=== PATIENT | female | born 1955 | race Caucasian/White ===

== ENCOUNTER 2020-02-29 11:59 | Emergency (ER) | payer MEDICARE, OTHER, MEDICAID, SELFPAY ==
[2020-02-29 12:22] VITALS: BP 90/65; PULSE 100; RESP 16; TEMP 36.8; O2SAT 100
--- NOTE | 2020-02-29 12:59 | ED.URI ---
HPI - URI/Sore Throat General Chief Complaint: Upper Respiratory Infection Stated Complaint: sore throat Time Seen by Provider: 02/29/20 12:47 Source: patient and RN notes reviewed Mode of arrival: ambulatory Limitations: no limitations History of Present Illness HPI Narrative: Patient presents today complaint of a 2-day history of sore throat with an occasionally productive cough since yesterday with white sputum. Denies fever. Patient has a significant respiratory history and wears oxygen continuously at 2 L. She does report chronic shortness of breath, but this is no worse than normal. She is currently on 5 mg of prednisone daily for her chronic illnesses. She has been using Sucrets for her throat pain. MD elicited complaint: sore throat Related Data Home Medications Medication Instructions Recorded Confirmed alprazolam 02/29/20 bacillus coagulans-inulin cap PO 02/29/20 [Probiotic Formula (inulin)] budesonide-formoterol [Symbicort] INHALATION 02/29/20 carboxymethylcellulose sodium 02/29/20 [Refresh Tears] cetirizine mg 02/29/20 cyproheptadine 02/29/20 docusate sodium PO 02/29/20 ergocalciferol (vitamin D2) 02/29/20 [Vitamin D2] famotidine 02/29/20 lidocaine 02/29/20 metoprolol succinate 02/29/20 prednisone 02/29/20 sodium chloride [Saline Mist] INTRANASAL 02/29/20 tiotropium bromide [Spiriva with INHALATION 02/29/20 HandiHaler] trazodone 02/29/20 zoledronic [id number] 02/29/20 Allergies Allergy/AdvReac Type Severity Reaction Status Date / Time No Known Allergies Allergy Unverified 03/23/16 18:34 Review of Systems Review of Systems: Narrative: CONSTITUTIONAL: Denies body aches, fever, chills, or sweats. EYES: Denies visual changes, redness, or discharge. ENT: Denies rhinorrhea, congestion, or otalgia.+ Sore throat CARDIOVASCULAR: Denies chest pain, palpitations, or edema. RESPIRATORY: Denies dyspnea.+ Cough GASTROINTESTINAL: Denies abdominal pain, nausea, vomiting, or diarrhea. GENITOURINARY: Denies dysuria or hematuria. SKIN: Denies rash, itching, or wounds. MUSCULOSKELETAL: Denies back pain, joint pain, or myalgia. NEUROLOGIC: Denies headache, numbness, tingling, or weakness. PSYCH: Denies depression or anxiety. [facility] Past Medical History Medical History (Updated 02/29/20 @ 14:06 by Yvette Burrows, [facility], ) Anxiety COPD (chronic obstructive pulmonary disease) Depression GERD (gastroesophageal reflux disease) Hypertension Surgical History Surgical History (Updated 02/29/20 @ 14:06 by Yvette Burrows, [facility], ) H/O: hysterectomy Social History Social History Smoking status: Former smoker Alcohol intake: never Comments At time of signature, I have reviewed and agree with nursing past medical, surgical, social and family history unless otherwise noted. Please see nursing chart for further information. There is no relevant family history pertinent to the presenting complaint Exam Narrative: Exam Narrative: GENERAL: Chronically ill-appearing, well-nourished, and in no acute distress. HEAD: Normocephalic, atraumatic. EYES: EOMI. No redness or drainage. Conjunctivae normal. ENT: Mucous membranes pink and moist. Nares clear. No rhinorrhea. TMs normal bilaterally. Throat normal. Uvula midline. NECK: Normal AROM. Supple. No lymphadenopathy. CHEST: No respiratory distress. Clear to auscultation. No cough appreciated during the exam. Slight wheeze in the left lower lobe. HEART: Regular rate and rhythm. No murmur appreciated. Normal peripheral pulses. EXTREMITIES: Normal range of motion. No edema. SKIN: Warm, dry, no rash. Capillary refill normal. Normal skin turgor. NEURO: No focal deficits. Alert and oriented x3. Gait steady. PSYCH: Normal affect. No signs of depression or anxiety. Course Course Emergency Course: Patient has declined a chest x-ray and an order for COVID-19 testing today. Vital Signs Vital signs: Vital Si
== END 2020-02-29 13:06 | disposition home or self-care (01) ==
PROVIDERS: Emergency Provider Nurse Practitioner
DX: J30.9 Allergic rhinitis, unspecified (principal); J02.9 Acute pharyngitis, unspecified; Z99.81 Dependence on supplemental oxygen; J44.9 Chronic obstructive pulmonary disease, unspecified; I10 Essential (primary) hypertension; K21.9 Gastro-esophageal reflux disease without esophagitis; Z87.891 Personal history of nicotine dependence
CPT/HCPCS: 87081; 87880; 99213; G0463

== ENCOUNTER → 2022-01-29 10:17 | Outpatient (REF) | payer MEDICARE, OTHER, MEDICAID, SELFPAY | LOC: ANHLAB 10:17 | PROVIDERS: Visit Provider Nurse Practitioner | DX: C44.319 Basal cell carcinoma of skin of other parts of face (principal) | CPT/HCPCS: 88305; 88331 ==

== ENCOUNTER 2022-09-07 13:57 | Emergency (ER) | payer MEDICARE, OTHER, MEDICAID, SELFPAY ==
[2022-09-07 14:25] VITALS: BP 115/72; PULSE 110; RESP 22; TEMP 36.6; O2SAT 100
--- NOTE | 2022-09-07 15:05 | ED.FEMALEGU ---
HPI - Female Genitourinary General Chief complaint: Urogenital-Female Stated complaint: UTI Time Seen by Provider: 09/07/22 14:30 Source: patient Mode of arrival: ambulatory Limitations: no limitations History of Present Illness HPI Narrative: Ms. Lou is a 66-year-old female patient presenting to the clinic today with complaints of possible urinary tract infection. She reports her symptoms began this morning with painful urination, frequency, and urgency. She also reports some pain in her lower abdomen. She denies any fever or chills. She denies any back pain. Related Data Home Medications Medication Instructions Recorded Confirmed alprazolam 0.5 mg tablet 0.5 mg DIRECTED 02/29/20 09/07/22 bacillus coagulans-inulin 1 1 cap PO DIRECTED 02/29/20 09/07/22 billion cell-250 mg capsule (Probiotic Formula (inulin)) budesonide-formoterol HFA 160 160 inh inhalation DIRECTED 02/29/20 09/07/22 mcg-4.5 mcg/actuation aerosol inhaler (Symbicort) carboxymethylcellulose sodium 0.5 1 drp DIRECTED 02/29/20 09/07/22 % eye drops (Refresh Tears) cetirizine 10 mg tablet 10 mg DIRECTED 02/29/20 09/07/22 docusate sodium 100 mg capsule 100 mg PO DIRECTED 02/29/20 09/07/22 ergocalciferol (vitamin D2) 1,250 1,250 mcg DIRECTED 02/29/20 09/07/22 mcg (50,000 unit) capsule (Vitamin D2) famotidine 40 mg tablet 40 mg DIRECTED 02/29/20 09/07/22 lidocaine 5 % topical patch 1 patch DIRECTED 02/29/20 09/07/22 prednisone 5 mg tablet 5 mg DIRECTED 02/29/20 09/07/22 sodium chloride 0.65 % nasal spray 1 spray intranasal DIRECTED 02/29/20 09/07/22 aerosol (Saline Mist) tiotropium bromide 18 mcg capsule 18 mcg inhalation DIRECTED 02/29/20 09/07/22 with inhalation device (Spiriva with HandiHaler) trazodone 50 mg tablet 50 mg DIRECTED 02/29/20 09/07/22 calcium carbonate 600 mg calcium 600 mg PO DAILY 01/29/22 09/07/22 (1,500 mg) tablet (Calcium) cyclobenzaprine 5 mg tablet 5 mg PO TID 01/29/22 09/07/22 immun glob G 8 40 ml DIRECTED 01/29/22 09/07/22 gram/40mL(20%)-gly-IgA over 50 mcg/mL subcutaneous soln (Cuvitru) metoprolol succinate 25 mg PO DIRECTED 01/29/22 09/07/22 mupirocin 2 % topical ointment 1 applic topical BID 01/29/22 09/07/22 teriparatide 20 mcg/dose (600 20 mcg subcut DAILY 01/29/22 09/07/22 mcg/2.4 mL) subcutaneous pen injector (Forteo) Allergies Allergy/AdvReac Type Severity Reaction Status Date / Time No Known Allergies Allergy Verified 02/05/22 17:06 Review of Systems Review of Systems: Pertinent positives per HPI. Patient denies any fever, chills, rash, headache, visual changes, dizziness, cough, runny nose, sore throat, shortness of breath, chest pain, palpitations, nausea, vomiting, diarrhea, constipation, PMFSH Past Medical History Medical History Anxiety COPD (chronic obstructive pulmonary disease) Depression GERD (gastroesophageal reflux disease) Hypertension Surgical History Surgical History H/O: hysterectomy Social History Social History Smoking status: Former smoker Alcohol intake: never Comments At the time of my signature, I reviewed and agree with the nursing past medical, surgical, social, and family history. There is no relevant family history pertinent to the patient complaint. Exam Narrative: General: Well-developed, well nourished, in no apparent distress. Head: Normocephalic, atraumatic. Cardio: Regular rate and rhythm, s1 and s2 normal, no murmur appreciated. Resp: Clear to auscultation bilaterally, no rhonchi, rales, wheezing or rubs. Abdomen: Soft, pliable, bowel sounds present in all quadrants, tender to palpation over the lower abdomen and bladder, no organomegly, no CVAT tenderness. Course Course Emergency Course:
== END 2022-09-07 15:14 | disposition home or self-care (01) ==
PROVIDERS: Emergency Provider Nurse Practitioner Family
DX: N39.0 Urinary tract infection, site not specified (principal); J44.9 Chronic obstructive pulmonary disease, unspecified; K21.9 Gastro-esophageal reflux disease without esophagitis; I10 Essential (primary) hypertension; Z87.891 Personal history of nicotine dependence; F41.9 Anxiety disorder, unspecified; F32.A Depression, unspecified
CPT/HCPCS: 81003; 87086; 99213; G0463

== ENCOUNTER 2023-11-07 09:30 | Outpatient (RCR) | payer MEDICARE, OTHER, MEDICAID, SELFPAY ==
--- NOTE | 2023-09-13 09:46 | OPREHPOC ---
Outpatient Therapy Plan of Care This is a Multidisciplinary Plan of Care that may contain components documented by all disciplines (PT, OT, and ST.) PT Problem 1 PT Problem #1 Knowledge Deficit PT Goal 1 Goal 1. Patient will perform independent HEP 2. Patient will verbalize urge suppression strategies Target Visit 7 PT Problem 2 PT Problem #2 Impaired Strength PT Goal 1 Goal 1. Improve hip strength to 5/5 padmini Target Visit 7 PT Problem 3 PT Problem #3 Impaired Functional ADLs PT Goal 1 Goal 1. Patient will report urinary incontinence no more than 1 time a week Target Visit 7
--- NOTE | 2023-09-13 09:46 | PTOPEVAL1 ---
Assessment and note entered by Orquidea West DPT Evaluation Information Assessment Status Evaluation Subjective Information Pt and her daughter report urinary incontinence at least 5 days out of 7. States she also has hemorrhoids that they can't do anything about . Voids 10 times a day and likely 2-3 times at night . Can hold urge to void less than 5 minutes. Denies pain with urination. Unsure on volume of incontinence when it does happen, goes through 3 pads a day typically. BM most days of the week, some pain from hemorrhoids. Usually does not have fecal incontinence and reports more issues with constipation. Pt has been 7 times with 6 deliveries, all vaginal with some tearing/stitches . Hysterectomy and appendectomy in 1995. No other b/b issues. Pt's daughter serves as her caregiver, she is currently on oxygen due to multiple lung issues and ambulates with a rollator. Patient goal: stronger muscles, not leak as much and make it to the bathroom. Return to MD not scheduled may. Reported Pain Level Pain Score 0: Self Report Assessment PT Clinical Summary The patient is presenting to skilled therapy with a history of urinary incontinence and urgency. She presents with decreased hip and core strength. She likely demonstrates decreased pelvic floor strength but did not consent to full examination this date, will follow up next visit. She will benefit from therapy to address her weakness and urgency in order to decrease incontinence. Plan of Care Interventions Manual Therapy,Neuro Re-education,Patient/ Caregiver Education,Therapeutic Activities, Therapeutic Exercise PT Services Indicated Yes Treatment Frequency and 1 time a week for 6 visits Duration These treatments will address the objective and functional deficits as defined above. The patient will be advanced safely and appropriately in order for the patient to progress towards his/her prior level of function. Additional exercises will be introduced and as well as a comprehensive home exercise program upon discharge, if needed, ?to ensure carryover of functional gains achieved in the clinic. This treatment plan has been reviewed and agreement upon by the patient.
--- NOTE | 2023-09-27 13:14 | PCPTNOTE ---
Patient called to cancel appointment 09/27/23 due to being hospitalized.
--- NOTE | 2023-10-11 10:49 | PCPTNOTE ---
Patient called to cancel appointment due to the cold weather.
--- NOTE | 2023-11-01 09:59 | PCPTNOTE ---
Patient's daughter called to cancel appointment due to oxygen issues. Rescheduled to next week.
--- NOTE | 2023-11-07 09:39 | OPREHPOC ---
Outpatient Therapy Plan of Care This is a Multidisciplinary Plan of Care that may contain components documented by all disciplines (PT, OT, and ST.) PT Problem 1 PT Problem #1 Knowledge Deficit PT Goal 1 Goal 1. Patient will perform independent HEP 2. Patient will verbalize urge suppression strategies Target Visit 7 Progress Met PT Problem 2 PT Problem #2 Impaired Strength PT Goal 1 Goal 1. Improve hip strength to 5/5 padmini Target Visit 7 Progress Partially Met Comment 4+/5 PT Problem 3 PT Problem #3 Impaired Functional ADLs PT Goal 1 Goal 1. Patient will report urinary incontinence no more than 1 time a week Target Visit 7 Progress Partially Met Comment 2
--- NOTE | 2023-11-07 09:39 | PTOPDC ---
Assessment and note entered by Orquidea West DPT Evaluation Information Assessment Status Discharge Subjective Information Pt reports improvements with therapy, feels her abdominal muscles are stronger. Only two instances of incontinence in the last week, once at night and once during the day. Voiding 6-7 times a day and 1-2 times at night. Reported Pain Level Pain Score 0: Self Report Assessment PT Clinical Summary The patient has made good progress in therapy and reports decreased frequency of voiding and decreased incontinence to 2 instances in the last week. She demonstrates improved hip and core strength. Due to her progress, plan for discharge to [facility] at this time and for patient to focus on pulmonary rehab and other health concerns. Patient and her daughter feel confident continuing exercises independently. Plan of Care PT Services Indicated No
== END 2023-11-07 10:35 | disposition home or self-care (01) ==
LOC: ANHPT 09:30
DX: R32 Unspecified urinary incontinence (principal); K62.89 Other specified diseases of anus and rectum
CPT/HCPCS: 97110; 97112; 97161